=== PATIENT | male | born 1985 | race Caucasian/White ===

== ENCOUNTER 2018-12-01 06:42 | Emergency (ER) | payer OTHER, SELFPAY ==
[2018-12-01 06:57] VITALS: BP 166/116; PULSE 80; RESP 18; TEMP 36.2; O2SAT 96; BMI 56.2
[2018-12-01] MEDS: KETOROLAC 60 MG/2 ML VIAL IM (07:53)
[2018-12-01] MEDS: diazePAM 5 MG TABLET PO (07:53)
--- NOTE | 2018-12-01 07:53 | ED_ITS ---
HPI - Neck Pain/Injury General Chief Complaint: Neck Pain/Injury Stated Complaint: 'SOMETHING WRONG WITH NECK CAN'T MOVE IT' Time Seen by Provider: 12/01/18 06:47 Source: patient and family Mode of arrival: ambulatory Limitations: no limitations History of Present Illness HPI Narrative: 33-year-old male, nonsmoker with history of asthma presents with his mother and a chief complaint worsening neck pain over the past 24 hr. He denies any injury nor history of the same. His pain is worse with any motion of his head and feels better remaining still. He denies any radiation of the pain down his arms as well as denies any numbness, tingling or weakness. He has had no headache, fever or chills and denies any recent illness. MD complaint: neck pain Onset (ago): hour(s) Place: home Radiation: right lateral and left lateral Severity: severe Quality: burning and sharp Duration: constant Relieving factors: remaining still Exacerbating factors: movement of neck Associated symptoms: none Treatments prior to arrival: none Related Data Previous Rx's Medication Instructions Recorded albuterol sulfate 1.25 mg INH Q4HP PRN #90 ea 10/17/17 albuterol sulfate [Ventolin HFA] 0 puff INH Q4HP PRN #1 ea 10/17/17 diazepam [Valium] 5 mg PO BID-QID PRN #10 tab 12/01/18 hydrocodone-acetaminophen 1 tab PO Q4-6H PRN #10 tab 12/01/18 ketorolac 10 mg PO Q6H PRN #14 tab 12/01/18 Allergies Allergy/AdvReac Type Severity Reaction Status Date / Time No Known Drug Allergies Allergy Verified 12/01/18 07:01 Review of Systems Constitutional Denies chills, Denies fever(s), Denies lethargy and Denies weakness Eyes Denies change in vision, Denies eye discharge, Denies irritation and Denies loss of vision ENT Ears, Nose, Mouth, and Throat: Denies change in voice, Denies neck pain and Denies sore throat Cardiovascular Denies chest pain, Denies irregular heart rhythm, Denies lightheadedness, Denies palpitations, Denies dyspnea, Denies dyspnea on exertion and Denies orthopnea Respiratory Denies cough, Denies dyspnea, Denies dyspnea on exertion and Denies wheezing Gastrointestinal Gastrointestinal: Denies abdominal pain, Denies change in bowel habits, Denies diarrhea, Denies nausea and Denies vomiting Genitourinary Denies hematuria, Denies flank pain, Denies urinary incontinence and Denies urinary urgency Musculoskeletal Reports limited range of motion, Denies neck pain and Reports stiffness Integumentary/Breasts Denies pruritus, Denies erythema, Denies rash and Denies wounds Neurologic Denies confusion, Denies loss of vision and Denies weakness Psychiatric Denies anxiety, Denies confusion, Denies depression, Denies homicidal ideation and Denies suicidal ideation Endocrine Denies palpitations Hematologic/Lymphatic Denies easy bruising Allergic/Immunologic Denies wheezing PFSH Social History Smoking Status: Never smoker Social History Smoking Status: Never smoker Exam Narrative Exam Narrative: GENERAL: 33-year-old male, morbidly obese appears quite uncomfortable, refusing to turn his neck. HEAD: Atraumatic. Normocephalic. No temporal or scalp tenderness. EYES: Pupils equal round and reactive. Extraocular motions intact. No scleral icterus. No injection or drainage. ENT: Nose without bleeding, purulent drainage or septal hematoma. Throat without erythema, tonsillar hypertrophy or exudate. Uvula midline. Airway patent. NECK: Trachea midline. No JVD or lymphadenopathy. Supple, tender in the paraspinal musculature, no midline tenderness. No cervical lymphadenopathy, no change with axial load CARDIOVASCULAR: Regular rate and rhythm without murmurs, gallops, or rubs. RESPIRATORY: Clear to auscultation. Breath sounds equal bilaterally. No wheezes, rales, or rhonchi. GASTROINTESTINAL: Abdomen soft, non-tender, nondistended. No hepato- splenomegaly, or palpable masses. No guarding. EXTREMITIES: No clubbing, cyanosis, or edema. No joint tenderness, effusion, or edema noted. BACK: Nontender without deformity or crepitance. No flank tenderness. NEURO: AOx3. SKIN: No rash or erythema. Initial Vital Signs Initial Vital Signs: Vital Signs Temperature 97.1 F L 12/01/18 06:57 Pulse Rate 80 12/01/18 06:57 Respiratory Rate 18 12/01/18 06:57 Blood Pressure 166/116 H 12/01/18 06:57 Pulse Oximetry 96 12/01/18 06:57 Procedures Orthopedic Splinting/Casting Injury #1: Additional Comments: soft cervical collar placed, patient tolerates well Course Orders Ordered: Discontinued Medications Diazepam (Valium) 5 mg PO NOW ONE Stop: 12/01/18 07:29 Last Admin: 12/01/18 07:53 Dose: 5 mg Ketorolac Tromethamine (Toradol) 60 mg IM NOW ONE Stop: 12/01/18 07:29 Last Admin: 12/01/18 07:53 Dose: 60 mg Vital Signs - 8 hr 12/01/18 06:57 12/01/18 09:24 Temperature 97.1 F L Pulse Rate 80 79 Respiratory Rate 18 16 Blood Pressure 166/116 H Blood Pressure [Left Arm] 147/104 H Pulse Oximetry 96 98 Discharge Plan Departure Patient Disposition: Home Clinical Impression: Cervical paraspinal muscle spasm Instructions: DI for Neck Pain Activity Restrictions/Additional Instructions: *You have been diagnosed with [ acute cervical paraspinal muscle pain ] *What to do: *Take medications as directed *Follow up with your primary care provider in 2-3 days, call for an appointment. Let them know you were seen in the Emergency Department and that we ask that you be seen in follow up *Return to ER if you should have any new, worsening or concerning symptoms, such as [ increasing pain, numbness, tingling, or weakness of extremities or other bothersome symptoms You have been prescribed narcotic medications. While on these medications you cannot drive or operate heavy machinery. Additionally you cannot sign legal documents or perform any duties such as this. 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 Please understand that we cannot provide further refills of narcotics or controlled substances through the ED and your pain management will need to be through your Primary Care Provider] Prescriptions: New hydrocodone-acetaminophen 5-325 mg tablet 1 tab PO Q4-6H PRN (Reason: pain) Qty: 10 RF: 0 ketorolac 10 mg tablet 10 mg PO Q6H PRN (Reason: pain) Qty: 14 RF: 0 diazepam [Valium] 5 mg tablet 5 mg PO BID-QID PRN (Reason: muscle spasm) Qty: 10 RF: 0 No Action albuterol sulfate [Ventolin HFA] 90 MCG/PUFF HFA aerosol inhaler INH Q4HP PRNQty: 1 RF: 0 albuterol sulfate 1.25 MG/3 ML solution for nebulization 1.25 mg INH Q4HP PRNQty: 90 RF: 0 Stand Alone Forms: Work Release Note
--- NOTE | 2018-12-01 09:20 | PC.NURSE ---
pt with relief, moving around easier, skin warm dry pink, denies paresthesia in 4 extremites, no resp distress.
--- NOTE | 2018-12-01 09:22 | PC.NURSE ---
woke up reporting bilateral neck pain and stiffness, denies trauma or injuries, denies paresthesia in all ext. no respiratory distress noted, mother at bs. pt denies fever or vomiting.
[2018-12-01 09:24] VITALS: BP 147/104; PULSE 79; RESP 16; O2SAT 98
[2018-12-01 09:44] VITALS: BP 141/105; PULSE 81; RESP 18; O2SAT 96
== END 2018-12-01 09:56 | disposition home or self-care (01) ==
PROVIDERS: Emergency Provider Emergency Medicine
DX: M54.2 Cervicalgia (principal)
CPT/HCPCS: 99283; J1885

== ENCOUNTER 2018-12-01 22:20 | Emergency (ER) | payer OTHER, SELFPAY ==
[2018-12-01 22:37] VITALS: BP 174/113; PULSE 102; RESP 18; TEMP 36.3; O2SAT 93; BMI 56.2
--- NOTE | 2018-12-02 00:23 | ED.NECK ---
HPI - Neck Pain/Injury General Chief Complaint: Neck Pain/Injury Stated Complaint: States can't move neck Time Seen by Provider: 12/02/18 00:19 Source: patient Mode of arrival: ambulatory Limitations: no limitations History of Present Illness HPI Narrative: patient is a 33-year-old male presenting with right-sided neck and shoulder pain. He was seen evaluated here earlier this morning. He is given prescriptions for ketorolac hydrocodone and Valium. He has been taking them around the clock throughout the day without any relief. He denies any injury. He said this morning he woke up and felt like he slept on it wrong but progressively has gotten worse throughout the day. As he feels like he is getting spasming from his shoulder blade up through his neck. He has no numbness or tingling in his upper extremities. His but he can't get it to stop. MD complaint: neck pain and upper back pain Onset (ago): day(s) (1) Severity: severe and intermittent Quality: burning, sharp and spasming Duration: intermittent and progressively worsening Treatments prior to arrival: prescription analgesic Related Data Previous Rx's Medication Instructions Recorded albuterol sulfate 1.25 mg INH Q4HP PRN #90 ea 10/17/17 albuterol sulfate [Ventolin HFA] 0 puff INH Q4HP PRN #1 ea 10/17/17 diazepam [Valium] 5 mg PO BID-QID PRN #10 tab 12/01/18 hydrocodone-acetaminophen 1 tab PO Q4-6H PRN #10 tab 12/01/18 ketorolac 10 mg PO Q6H PRN #14 tab 12/01/18 Allergies Allergy/AdvReac Type Severity Reaction Status Date / Time No Known Drug Allergies Allergy Verified 12/01/18 22:37 Review of Systems Review of Systems GENERAL: Denies chills, fatigue, malaise, fever, sweats, travel HEENT: Denies sinus pain, ear pain, sore throat, difficulty swallowing, neck pain RESPIRATORY: Denies dyspnea, cough, wheezing, hemoptysis, sputum. CARDIOVASCULAR: Denies chest pain, palpitations, orthopnea, edema GASTROINTESTINAL: Denies nausea, vomiting, abdominal pain, diarrhea, constipation, melena. : Denies dysuria, frequency, incontinence, hematuria, urinary retention, flank pain. MUSCULOSKELETAL: See HPI SKIN: No rash, no erythema, no pruritus NEUROLOGIC: Denies weakness, dizziness, headache, numbness, change in speech, confusion PSYCHIATRIC: No concerning psychosocial issues. 12 point review of systems is negative except for those stated above and HPI [facility] Medical History Patient denies significant medical history (Acute) Social History Smoking Status: Never smoker Social History Smoking Status: Never smoker Exam Initial Vital Signs Initial Vital Signs: Vital Signs Temperature 97.3 F L 12/01/18 22:37 Pulse Rate 102 H 12/01/18 22:37 Respiratory Rate 18 12/01/18 22:37 Blood Pressure 174/113 H 12/01/18 22:37 Pulse Oximetry 93 12/01/18 22:37 GENERAL: overweight male sitting on gurney appears in pain and not moving his tenderness HEENT: Head atraumatic,EOMI, right paraspinal muscle spasm and tenderness. He also has spasm noted in his trapezius muscle. He has significantly decreased range of motion to the left but can turn his head to the right. 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 Neck tender more on right as described above. NEUROLOGICAL: Alert and oriented x4. SKIN: Warm, dry, no laceration, no petechiae, no rashes or lesions. Course Orders Ordered: Discontinued Medications Diazepam (Valium) 10 mg IM NOW ONE Stop: 12/02/18 00:59 Last Admin: 12/02/18 01:03 Dose: 10 mg Hydromorphone HCl (Dilaudid) 1 mg SUBCUT Q4H PRN PRN Reason: Pain, Severe (7-10) Last Admin: 12/02/18 00:51 Dose: 1 mg Vital Signs - 8 hr 12/01/18 22:37 12/02/18 01:44 Temperature 97.3 F L Pulse Rate 102 H 98 H Respiratory Rate 18 20 Blood Pressure 174/113 H Blood Pressure [Left Wrist] 151/100 H Pulse Oximetry 93 98 MDM - Neck Pain/Injury MDM Narrative Medical decision making narrative: The patient is still having intermittent spasms while in the ED the is feeling little bit better. I was able to stretch and release some of his paraspinal muscle spasm. He had significant relief with able to move his shoulder and neck afterwards. Feeling much better ready and able to go home. Discharge Plan Departure Patient Disposition: Home Clinical Impression: Cervical paraspinal muscle spasm Discharge Date/Time: 12/02/18 02:00 Interventions: ED Discharge Assessment Last Done: 12/02/18 02:09 Instructions: DI for Muscle Spasm Activity Restrictions/Additional Instructions: *YOU HAVE BEEN DIAGNOSED WITH cervical muscle spasm *WHAT TO DO: increase activity as tolerated, heating pad 30 min at a time light stretching and activity no strenuous activity or heavy lifting *CONTINUE TO TAKE MEDICATIONS DIRECTED - may increase hydrocodone to 2 tablets every 6 hr or you may take 1 tablet every 4 hr *FOLLOW UP WITH YOUR PRIMARY CARE PROVIDER IN 2-3 DAYS *RETURN TO ER IF YOU SHOULD HAVE low numbness, tingling, weakness, worsening painANY NEW, WORSENING OR CONCERNING SYMPTOMS Prescriptions: No Action albuterol sulfate [Ventolin HFA] 90 MCG/PUFF HFA aerosol inhaler INH Q4HP PRNQty: 1 RF: 0 albuterol sulfate 1.25 MG/3 ML solution for nebulization 1.25 mg INH Q4HP PRNQty: 90 RF: 0 hydrocodone-acetaminophen 5-325 mg tablet 1 tab PO Q4-6H PRN (Reason: pain) Qty: 10 RF: 0 ketorolac 10 mg tablet 10 mg PO Q6H PRN (Reason: pain) Qty: 14 RF: 0 diazepam [Valium] 5 mg tablet 5 mg PO BID-QID PRN (Reason: muscle spasm) Qty: 10 RF: 0
[2018-12-02] MEDS: HYDROMORPHONE 2 MG INJ 1 MG SUBCUT (00:51)
[2018-12-02] MEDS: diazePAM 10 MG/2 ML SYRINGE IM (01:03)
[2018-12-02 01:44] VITALS: BP 151/100; PULSE 98; RESP 20; O2SAT 98
== END 2018-12-02 02:00 | disposition home or self-care (01) ==
PROVIDERS: Emergency Provider Emergency Medicine
DX: M62.838 Other muscle spasm (principal)
CPT/HCPCS: 99282; 99283; J1170; J1885; J3360

== ENCOUNTER → 2019-12-20 12:25 | Outpatient (CLI) | payer OTHER, SELFPAY ==
[2019-12-20 13:56] LABS: Liquefaction Semen YES (YES); PH Semen 8.5 (7-8); Sperm Count 92 x10^6/mL (20-150); Volume Semen 2 (1.0-5.0)
[2019-12-20 13:57] LABS: Sperm Morphology 30 %ABNORM (0-30); Sperm Motility 60% % Motile
== END ==
DX: Z31.41 Encounter for fertility testing (principal)
CPT/HCPCS: 89320

== ENCOUNTER 2020-05-17 19:37 | Emergency (ER) | payer OTHER, SELFPAY ==
[2020-05-17] VITALS (9 sets, daily range): BP systolic 134–172; BP diastolic 60–99; PULSE 86–102; RESP 13–19; TEMP 36.6; O2SAT 94–98; BMI 57.7
--- NOTE | 2020-05-17 19:42 | DI.RAD.S_ITS ---
PROCEDURE: XR CHEST 1V INDICATIONS: chest pain TECHNIQUE: One view of the chest was acquired. COMPARISON: [facility], CHEST 2 VIEW, 10/17/2017, 19:49. [facility], CHEST 2 VIEW, 07/29/2010, 10:08. FINDINGS: Surgical changes and devices: None. Lungs and pleura: Lungs are abnormal, with a mild pulmonary edema pattern. No pleural effusions or pneumothorax. Mediastinum: Mediastinal contours appear normal. Heart size is mildly enlarged. Bones and chest wall: No suspicious bony lesions. Overlying soft tissues appear unremarkable. IMPRESSION: Cardiomegaly and mild congestive heart failure. Dictated by: Mingo Frost M.D. on 05/17/2020 at 20:12 Approved by: Mingo Frost M.D. on 05/17/2020 at 20:12
[2020-05-17 20:02] LABS: Add Manual Diff / Slide Review NO; Basophils Absolute Auto 100 /uL (0-100); Basophils Percent Auto 1.4 % (0-2); Eosinophils Absolute Auto 200 /uL (0-450); Eosinophils Percent Auto 2.3 % (2-4); Hematocrit 43.8 % (41-53); Hemoglobin 14.8 g/dL (13.5-17.5); Lymphocytes Absolute Auto 2300 /uL (1100-4500); Lymphocytes Percent Auto 26.7 % (25-40); Mean Corpuscular HGB Conc 33.7 % (30-36); Mean Corpuscular Hemoglobin 29.5 PG (26-34); Mean Corpuscular Volume 87.4 fL (80-100); Monocytes Absolute Auto 700 /uL (0-900); Monocytes Percent Auto 8.6 % (3-14); Neutrophils Absolute Auto 5200 /uL (1500-7000); Platelet Count 201 X10^3/uL (150-400); Red Blood Cell Count 5.01 X10^6/uL (4.5-5.9); Red Cell Distribution Width 13.4 % (11.6-14.8); White Blood Cell Count 8.5 X10^3/uL (4.5-11.0)
[2020-05-17 20:07] LABS: Prothrombin Time 11.7 SECONDS (10.1-12.7)
[2020-05-17 20:10] LABS: PTT Partial Thromboplastin Tim 39 SECONDS (26.4-36.2)
[2020-05-17 20:12] LABS: Alanine Aminotransferase 55 IU/L (<50); Albumin 4.5 g/dL (3.5-5.0); Albumin Globulin Ratio 1.2 (1.0-2.8); Alkaline Phosphatase 68 U/L (38-126); Aspartate Aminotransferase 37 IU/L (17-59); BUN Creatinine Ratio 19.8 (6-22); Bilirubin Total 0.5 mg/dL (0.2-1.3); Blood Urea Nitrogen 21 mg/dL (9-20); Calcium 9.7 mg/dL (8.4-10.2); Carbon Dioxide 27 mmol/L (22-32); Chloride 105 mmol/L (98-107); Creatine Kinase 118 U/L (55-170); Estimated Glomerular Filt Rate > 60.0 mL/min (>60); Globulin 3.7 g/dL (1.7-4.1); Glucose 108 mg/dL (70-100); HEMOLYSIS < 15 (0-50); Lipase 131 U/L (23-300); Potassium 3.9 mmol/L (3.4-5.1); Sodium 140 mmol/L (137-145); Total Protein 8.2 g/dL (6.3-8.2)
[2020-05-17 20:23] LABS: Troponin I < 0.012 ng/mL (0.01-0.034)
[2020-05-17 20:27] LABS: CKMB % Relative Index 0.7 % (1.5-5.0); Creatine Kinase MB 0.88 ng/mL (<2.37)
--- NOTE | 2020-05-17 22:02 | ED_ITS ---
HPI - General Adult General Chief complaint: Dizziness Stated complaint: light headed and sweaty Time Seen by Provider: 05/17/20 22:02 Source: patient Mode of arrival: Ambulatory Limitations: no limitations History of Present Illness HPI narrative: 35-year-old gentleman with morbid obesity, hyperlipidemia, diabetes, sleep apnea using CPAP and currently on no medications presents after an episode of dizziness with severe anxiety last night. Associated with specific anxiety over his daughter began abruptly with increasing anxiety than hyperventilation than dizziness resolved after approximately an hour. When he woke up this morning he was still complaining of a moderate amount of dizziness. Related Data Home Medications Medication Instructions Recorded Confirmed CPAP Mask Device #1 ea 05/02/19 06/26/19 Previous Rx's Medication Instructions Recorded albuterol sulfate 1.25 mg INH Q4HP PRN #90 ea 10/17/17 albuterol sulfate 90 mcg/actuation 2 puff INHALATION Q4H PRN #6.7 gram 05/23/19 aerosol inhaler amoxicillin 875 mg tablet 875 mg PO BID #28 tab 06/26/19 atorvastatin 20 mg tablet 20 mg PO BEDTIME #45 tab 06/26/19 fluticasone propionate 110 1 puff INHALATION BID #12 gram 06/26/19 mcg/actuation HFA aerosol inhaler metformin 500 mg tablet,extended 500 mg PO QPM #45 tab 06/26/19 release 24 hr prednisone 20 mg tablet See Rx Instructions PO BID #15 tab 06/26/19 Allergies Allergy/AdvReac Type Severity Reaction Status Date / Time No Known Drug Allergies Allergy Verified 05/17/20 19:40 Review of Systems Review of Systems Narrative: Pertinent positive and negative findings as per HPI Remainder of review of systems is otherwise unremarkable for Constitutional: Fevers, chills, weakness ENT: No sore throat, neck pain, ear pain Respiratory: Cough, wheeze, dyspnea GI: Nausea, vomiting, diarrhea, : Dysuria, hematuria, flank pain MS: Muscle weakness, numbness, Neuro: Syncope, tingling Patient History Medical History Asthma (Chronic ~1988) Patient denies significant medical history (Acute) Family History Father Hyperlipidemia Mother Ovarian cancer Sister SVT (supraventricular tachycardia) Epileptic History of heart disease Grandfather History of kidney cancer Hypertension Grandmother Cancer Grandfather Hyperlipidemia Hypertension Grandmother Stroke Social History Smoking Status: Former smoker Tobacco: How many years used: 5 second hand exposure: No alcohol intake: current (a beer or liquor once or twice a week.) substance use type: does not use Smoking Status: Former smoker alcohol intake frequency: holidays/special occasions only Substance Use Type: does not use Exam Narrative Exam Narrative: General: Healthy appearing, in no acute distress. Able to give a complete and coherent history. Morbidly obese HEENT: Moist mucous membranes, normal sclera with reactive pupils, Neck: supple Respiratory: Lungs are clear to auscultation, no wheezing no rales no rhonchi. Full and symmetrical air movement Cardiac: Regular rate and rhythm no murmurs no bruits Abdomen: Soft, obese, nontender good bowel tones, no flank pain Skin: Warm and dry, no rashes Neurologic: Grossly neurologically intact with no obvious asymmetries or abnormalities Extremities: No trauma, well perfused Psych: Cooperative, appropriate insight and affect Initial Vital Signs Initial Vital Signs: Vital Signs Temperature 97.9 F 05/17/20 19:43 Pulse Rate 86 05/17/20 19:43 Respiratory Rate 18 05/17/20 19:43 Blood Pressure 140/82 05/17/20 19:43 Pulse Oximetry 98 05/17/20 19:43 Course Orders Ordered: ED Orders 05/17/20 19:35 Complete Blood Count AUTO DIFF Stat Comprehensive Metabolic Panel Stat Lipase Stat Partial Thromboplastin Time Stat Prothrombin Time INR Stat Troponin & CK Cardiac Panel Stat 05/17/20 19:42 XR chest 1V Stat EKG-12 Lead Stat Vital Signs Vital signs: Vital Signs - 8 hr 05/17/20 20:00 05/17/20 20:02 05/17/20 20:13 Pulse Rate 89 100 H 102 H Respiratory Rate 16 15 18 Blood Pressure 172/96 H 152/99 H Pulse Oximetry 98 98 98 05/17/20 20:30 05/17/20 21:00 05/17/20 21:30 Pulse Rate 92 H 93 H 97 H Respiratory Rate 17 13 19 Blood Pressure 141/75 H 138/79 136/77 Pulse Oximetry 96 96 96 05/17/20 22:00 05/17/20 22:30 Pulse Rate 96 H 87 Respiratory Rate 15 Blood Pressure 134/60 141/60 H Pulse Oximetry 95 94 Medical Decision Making Medical Records Medical records reviewed: Yes I reviewed the patient's medical records. Lab Data Lab results reviewed: Yes I reviewed the patient's lab results. Result diagrams: 05/17/20 19:35 05/17/20 19:35 Labs: Lab Results 05/17/20 05/17/20 05/17/20 Range/Units 19:35 19:35 19:35 WBC 8.5 (4.5-11.0) X10^3/uL RBC 5.01 (4.5-5.9) X10^6/uL Hgb 14.8 (13.5-17.5) g/dL Hct 43.8 (41-53) % MCV 87.4 (80-100) fL MCH 29.5 (26-34) PG MCHC 33.7 (30-36) % RDW 13.4 (11.6-14.8) % Plt Count 201 (150-400) X10^3/uL Neut % (Auto) 61.0 (50-75) % Lymph % (Auto) 26.7 (25-40) % [place] % (Auto) 8.6 (3-14) % Eos % (Auto) 2.3 (2-4) % Baso % (Auto) 1.4 (0-2) % Neut # (Auto) 5200 (6092-8075) /uL Lymph # (Auto) 2300 (1899-7465) /uL [place] # (Auto) 700 (0-900) /uL Eos # (Auto) 200 (0-450) /uL Baso # (Auto) 100 (0-100) /uL PT 11.7 (10.1-12.7) SECONDS INR 1.0 (0.9-1.3) APTT 39 H (26.4-36.2) SECONDS Sodium 140 (137-145) mmol/L Potassium 3.9 (3.4-5.1) mmol/L Chloride 105 (98-107) mmol/L Carbon Dioxide 27 (22-32) mmol/L BUN 21 H (9-20) mg/dL Creatinine 1.06 (0.66-1.25) mg/dL Estimated GFR > 60.0 (>60) mL/min BUN/Creatinine Ratio 19.8 (6-22) Glucose 108 H (70-100) mg/dL Calcium 9.7 (8.4-10.2) mg/dL Total Bilirubin 0.5 (0.2-1.3) mg/dL AST 37 (17-59) IU/L ALT 55 H (<50) IU/L Alkaline Phosphatase 68 (38-126) U/L Total Creatine Kinase 118 (55-170) U/L CK-MB (CK-2) 0.88 (<2.37) ng/mL CK-MB (CK-2) Rel Index 0.7 L (1.5-5.0) % Troponin I < 0.012 (0.01-0.034) ng/mL Total Protein 8.2 (6.3-8.2) g/dL Albumin 4.5 (3.5-5.0) g/dL Globulin 3.7 (1.7-4.1) g/dL Albumin/Globulin Ratio 1.2 (1.0-2.8) Lipase 131 (23-300) U/L Imaging Data Chest x-ray: Radiologist's Impression: IMPRESSION: Cardiomegaly and mild congestive heart failure. Dictated by: Mingo Frost M.D. on 05/17/2020 at 20:12 MDM Narrative Medical decision making narrative: 35-year-old gentleman presents after an episode of acute anxiety and dizziness that most likely was a panic attack last night in retrospect he notes that he has had these previously and last night seem to be the worst. There is a strong family history for similar panic attacks. This morning with the persistent dizziness he wanted further evaluation. His previous medication list indicates metformin and atorvastatin but he reports no history of diabetes or hypercholesterolemia however he has not been to see a physician for approximately a year after his left last provider retired. At this time there is no significant evidence for acute coronary syndrome, stroke, significant infection and exam history and lab results are all most consistent with panic attack. Patient is reassured, safe for discharge home. Discharge Plan Departure Patient Disposition: Home Clinical Impression: Panic attack, Dizziness Discharge Date/Time: 05/17/20 22:45 Instructions: DI for Panic Disorder Activity Restrictions/Additional Instructions: Thank you for coming in this evening Your workup was very reassuring. I do not see any signs of Covid, heart attack, other infection, kidney problems or liver problems or any other life-threatening diagnoses this evening. I would encourage you to follow-up with your primary care physician and I think the idea of trying to establish with Dr. Lakhani is a great one. When you do see him, discussing panic attacks, treatment, medical management verses therapy versus simply awareness are all common treatments. Basic preventive healthcare and chronic maintenance may help in alleviating some of your medical anxieties. I wish you the best. Prescriptions: No Action albuterol sulfate 1.25 MG/3 ML solution for nebulization 1.25 mg INH Q4HP PRNQty: 90 RF: 0 albuterol sulfate [Ventolin HFA] 90 mcg/actuation HFA aerosol inhaler 2 puff INHALATION Q4H PRN (Reason: shortness of breath or wheezing) Qty: 6.7 RF: 1 metformin 500 mg tablet extended release 24 hr 500 mg PO QPM Qty: 45 RF: 1 atorvastatin 20 mg tablet 20 mg PO BEDTIME Qty: 45 RF: 1 prednisone 20 mg tablet See Rx Instructions PO BID Qty: 15 RF: 0 Flovent HFA 110 mcg/actuation HFA aerosol inhaler 1 puff INHALATION BID Qty: 12 RF: 0 amoxicillin 875 mg tablet 875 mg PO BID Qty: 28 RF: 0 (DME) CPAP Mask Device Qty: 1 RF: 0 Stand Alone Forms: Work Release Note
== END 2020-05-17 22:45 | disposition home or self-care (01) ==
PROVIDERS: Emergency Provider Emergency Medicine
DX: F41.0 Panic disorder [episodic paroxysmal anxiety] (principal); R42 Dizziness and giddiness; E66.01 Morbid (severe) obesity due to excess calories; R07.9 Chest pain, unspecified
CPT/HCPCS: 36415; 71045; 80053; 82550; 82553; 83690; 84484; 85025; 85610; 85730; 93005; 99284

== ENCOUNTER 2024-06-19 18:52 | Emergency (ER) | payer BC, SELFPAY ==
[2024-06-19 18:54] VITALS: BP 148/81; PULSE 101; RESP 18; TEMP 36.8; O2SAT 100; BMI 44.9
--- NOTE | 2024-06-19 19:01 | ED.SOB ---
HPI - SOB/Dyspnea General Chief Complaint: Shortness of Breath/Dyspnea Stated Complaint: SOB, asthma Time Seen by Provider: 06/19/24 18:59 History of Present Illness HPI Narrative: 39-year-old male with history of asthma presents for asthma exacerbation. States he was felt short of breath over the last day off and on. He has been using his home nebulizer machine without significant relief. He took 2 puffs of his daughters Breyna inhaler, which seemed to work. Patient states that he does not want any labs or x-ray imaging done, he was just here for steroids and nebulizer treatments to prevent worsening exacerbation. States that this is likely brought on by living in a new household with several dogs, which he was allergic to. by the time of my exam patient had already received nebulizer treatment and steroids. Related Data Home Medications Medication Instructions Recorded Confirmed CPAP Mask Device #1 ea 05/02/19 06/26/19 Previous Rx's Medication Instructions Recorded albuterol sulfate 1.25 mg/3 mL 1.25 mg (3 mL) INH Q4HP PRN #90 ea 10/17/17 solution for nebulization albuterol sulfate 90 mcg/actuation 2 puff inhalation Q4H PRN 05/23/19 aerosol inhaler (Ventolin HFA) shortness of breath or wheezing #6.7 grams amoxicillin 875 mg tablet 875 mg PO BID #28 tabs 06/26/19 atorvastatin 20 mg tablet 20 mg PO BEDTIME #45 tabs 06/26/19 fluticasone propionate 110 1 puff inhalation BID #12 grams 06/26/19 mcg/actuation HFA aerosol inhaler (Flovent HFA) metformin 500 mg tablet,extended 500 mg PO QPM #45 tabs 06/26/19 release 24 hr prednisone 20 mg tablet See Rx Instructions PO BID #15 tabs 06/26/19 prednisone 20 mg tablet 40 mg (2 x 20 mg) PO DAILY #10 tabs 06/19/24 Allergies Allergy/AdvReac Type Severity Reaction Status Date / Time No Known Drug Allergies Allergy Verified 06/19/24 19:07 Patient History Medical History Asthma (~1988) Patient denies significant medical history Family History Father Hyperlipidemia Mother Ovarian cancer Sister SVT (supraventricular tachycardia) Epileptic History of heart disease Grandfather History of kidney cancer Hypertension Grandmother Cancer Grandfather Hyperlipidemia Hypertension Grandmother Stroke Social History Smoking Status: Former smoker Tobacco: How many years used: 5 second hand exposure: No alcohol intake: current substance use type: does not use Smoking Status: Former smoker alcohol intake frequency: holidays/special occasions only Substance Use Type: does not use Exam Initial Vital Signs Initial Vital Signs: Vital Signs Temperature 98.2 F 06/19/24 18:54 Pulse Rate 101 H 06/19/24 18:54 Respiratory Rate 18 06/19/24 18:54 Blood Pressure 148/81 H 06/19/24 18:54 Pulse Oximetry 100 06/19/24 18:54 Oxygen Delivery Method Room Air 06/19/24 18:54 Const: Awake, alert, no acute distress, nontoxic appearing Cardiac: regular rate, regular rhythm RESP: unlabored, clear bilaterally, no wheezing Skin: Warm, Dry, intact, no rashes Neuro: AO x3, CN II-XII grossly intact, moves all extremities Course Orders Ordered: Discontinued Medications Albuterol/Ipratropium (Albuterol/Ipratropium 3 Ml Ampul) 9 ml INH NOW ONE Stop: 06/19/24 19:01 Last Admin: 06/19/24 19:15 Dose: 9 ml Documented By: ANGELO Dexamethasone (Dexamethasone 10 Mg/Ml Vial) 10 mg PO NOW ONE Stop: 06/19/24 19:01 Last Admin: 06/19/24 19:39 Dose: 10 mg Documented By: GÓMEZ Vital Signs Vital signs: Vital Signs - 8 hr 06/19/24 18:54 06/19/24 19:22 Temperature 98.2 F Pulse Rate 101 H 94 H Respiratory Rate 18 Blood Pressure 148/81 H Pulse Oximetry 100 94 Oxygen Delivery Method Room Air Room Air MDM - SOB/Dyspnea Differential Diagnosis Differential diagnosis: Likely acute exacerbation of chronic obstructive airways disease, community acquired pneumonia and asthma with exacerbation MDM Narrative Medical decision making narrative: Nontoxic patient with shortness of breath consistent with known history of asthma. Patient does not want any labs or x-ray imaging done today. By the time of my examination patient had already received a nebulizer treatment with resolution of symptoms. On my exam there was no wheezing, no tachypnea, patient was able to speak in complete sentences without difficulty. Patient states that he can call his primary care doctor to talk about any medication changes that may need to be made. Patient was given vial of DuoNeb for home use, sent with a prescription of prednisone. Patient requested a note for work, which was also provided. Discharge Plan Departure Patient Disposition: Home Clinical Impression: Asthma exacerbation Instructions: DI for Asthma -- Adult Activity Restrictions/Additional Instructions: Make sure that you follow up with your primary care doctor. Take your steroids and inhalers as prescribed. Prescriptions: New prednisone 20 mg tablet 40 mg PO DAILY Qty: 10 0RF No Action albuterol sulfate 1.25 MG/3 ML solution for nebulization 1.25 mg INH Q4HP PRNQty: 90 0RF albuterol sulfate [Ventolin HFA] 90 mcg/actuation HFA aerosol inhaler 2 puff INHALATION Q4H PRN (Reason: shortness of breath or wheezing) Qty: 6.7 1RF metformin 500 mg tablet extended release 24 hr 500 mg PO QPM Qty: 45 1RF Rx Instructions: Take one tablet with evening meal - repeat lab work in 6 weeks atorvastatin 20 mg tablet 20 mg PO BEDTIME Qty: 45 1RF Rx Instructions: Repeat lab work in 6 weeks prednisone 20 mg tablet See Rx Instructions PO BID Qty: 15 0RF Rx Instructions: Take 3 tabs today; then 2 tabs once daily until gone Flovent HFA 110 mcg/actuation HFA aerosol inhaler 1 puff INHALATION BID Qty: 12 0RF Rx Instructions: Inhale one puff twice daily for 2-3 weeks; DISPENSE WITH SPACER amoxicillin 875 mg tablet 875 mg PO BID Qty: 28 0RF (DME) CPAP Mask Device Qty: 1 Dose Instruction: As directed Rx Instructions: As directed Referrals: Miscellaneous,Doctor, MD [Primary Care Provider] - Stand Alone Forms: Patient Portal/API, Work Release Note
[2024-06-19] MEDS: ALBUTEROL/IPRATROPIUM 3 ML AMPUL 9 ML INH (19:15)
[2024-06-19 19:22] VITALS: PULSE 94; O2SAT 94
[2024-06-19] MEDS: DEXAMETHASONE 10 MG/ML VIAL PO (19:39)
== END 2024-06-19 19:49 | disposition home or self-care (01) ==
PROVIDERS: Emergency Provider Emergency Medicine
DX: J45.901 Unspecified asthma with (acute) exacerbation (principal)
CPT/HCPCS: 94150; 94640; 99283; J1100